=== PATIENT | male | born 1985 | race American Indian/Alaskan Native ===

== ENCOUNTER 2020-11-19 13:58 | Emergency (ER) | payer SELFPAY ==
[2020-11-19 15:59] VITALS: BP 135/69
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
== END 2020-11-19 17:30 | disposition home or self-care (01) ==
LOC: ED 13:58
DX: M54.2 Cervicalgia (principal); M54.9 Dorsalgia, unspecified
CPT/HCPCS: 72040; 72070; 99283